=== PATIENT | female | born 1955 | race Caucasian/White ===

== ENCOUNTER → 2024-07-03 19:02 | Outpatient (REF) | payer BC, SELFPAY | LOC: WDC 19:02 | PROVIDERS: ATTENDING PHYSICIAN Obstetrics & Gynecology; FAMILY PHYSICIAN Family Medicine | DX: Z12.31 Encounter for screening mammogram for malignant neoplasm of breast (principal) | CPT/HCPCS: 77063; 77067 ==

== ENCOUNTER → 2025-07-17 07:50 | Outpatient (REF) | payer BC, SELFPAY | LOC: HWRAD 07:50 | PROVIDERS: ATTENDING PHYSICIAN Obstetrics & Gynecology; FAMILY PHYSICIAN Family Medicine | DX: Z78.0 Asymptomatic menopausal state (principal) | CPT/HCPCS: 77080 ==

== ENCOUNTER → 2025-09-16 06:55 | Outpatient (REF) | payer BC, SELFPAY ==
[2025-09-16 07:29] VITALS: BP 114/73; BP_SYST 68
[2025-09-16 07:30] LABS: Hematocrit 37.1 % (37.0-47.0); Hemoglobin 11.8 g/dL (12.0-16.0); Mean Corp Hgb Conc. 31.8 g/dL (33.0-37.0); Mean Corpuscular Volume 87.1 fL (81.0-99.0); Nucleated Red Blood Cells % 0 %; Platelet Count 313 10^3/uL (130-400); Red Cell Dist. Width 13.1 % (11.5-14.5)
[2025-09-16] MEDS: ATIVAN 0.5 MG PO (07:44)
[2025-09-16 07:47] LABS: INR 0.93; PT 12.7 Sec (11.4-14.6)
[2025-09-16 09:16] VITALS: BP 125/63
== END ==
LOC: RADI 06:55
PROVIDERS: ATTENDING PHYSICIAN Internal Medicine Hematology & Oncology; FAMILY PHYSICIAN Family Medicine; REFERRING PHYSICIAN Physician Assistant
DX: D47.01 Cutaneous mastocytosis (principal)
CPT/HCPCS: 36415; 38222; 77012; 85025; 85610; 88305; 88311; 88312; 88313

== ENCOUNTER → 2025-10-10 10:09 | Outpatient (REF) | payer BC, SELFPAY | LOC: MRI 3T 10:09 | PROVIDERS: ATTENDING PHYSICIAN Internal Medicine Hematology & Oncology; FAMILY PHYSICIAN Family Medicine | DX: D47.01 Cutaneous mastocytosis (principal) | CPT/HCPCS: 74183 ==